=== PATIENT | female | born 1975 | race Caucasian/White ===

== ENCOUNTER → 2016-04-18 | Outpatient (CLI) | payer OTHER ==
--- NOTE | 2016-04-18 14:08 | REP ---
MR LUMBAR SPINE WITHOUT CONTRAST: HISTORY: Right leg pain. COMPARISON: 10/04/2015 Decreased signal intensity on T2-weighted images is present in the L3-4 through L5-S1 intervertebral discs. The L3-4 and L4-5 intervertebral discs are decreased in height. These findings are consistent with disc degeneration. There is no disc bulge or herniation at the L1-2 and L2-3 levels. The nerves exit the neural foramina without compression. A diffuse disc bulge is present at the L3-4 level. There is hypertrophy of the ligamenta flava and posterior articulating facets. These findings produce minimal central canal stenosis. The L3 nerves exit the neural foramina without compression. A diffuse disc bulge is present at the L4-5 level. There is minimal compression of the thecal sac. There is hypertrophy of the posterior articulating facets. A mild size left intraforaminal and lateral disc protrusion is present. There is compression of the left L4 nerve in the neural foramen. The right L4 nerve exits the neural foramen without compression. A diffuse disc bulge is present at the L5-S1 level. This abuts the thecal sac and S1 nerves. There is hypertrophy of the posterior articulating facets. A small right intraforaminal disc protrusion is present. This abuts the right L5 nerve in the distal neural foramen. The left L5 nerve exits the neural foramen without compression. The conus medullaris is normal in appearance terminating at the level of the T12-L1 intervertebral disc. Normal signal intensity is present in the lumbar vertebral bodies. IMPRESSION: 1. Minimal central canal stenosis at the L3-4 level secondary to disc bulge, ligamentous, and facet hypertrophy. This is a new finding. 2. Diffuse disc bulge at the L4-5 level with minimal thecal sac compression. A mild size left intraforaminal and lateral disc protrusion is present. There is compression of the left L4 nerve in the neural foramen. 3. Diffuse disc bulge at the L5-S1 level. This abuts the thecal sac and S1 nerves. A small right intraforaminal disc protrusion is present. This abuts the right L5 nerve in the distal neural foramen. There is no other significant change. Signed by Biju Salinas MD 04/18/2016 02:13 P
--- NOTE | 2016-04-18 15:39 | REP ---
MRI CERVICAL SPINE WITHOUT CONTRAST: HISTORY: Left arm numbness. COMPARISON: 05/26/2009 A disc bulge and small central disc protrusion are present at the C3-4 level. There is minimal spinal cord compression. Uncinate process hypertrophy is present on the left. This produces minimal narrowing of the left C3 neural foramen. The right C3 neural foramen is patent. A disc bulge is present at the C4-5 level. There is mild effacement of the thecal sac without spinal cord compression. Bilateral uncinate process hypertrophy is present. This produces mild narrowing of the C4 neural foramina. A disc bulge is present at the C6-7 level. There is mild effacement of the thecal sac without spinal cord compression. The C6 neural foramina are patent. There is no other disc bulge or herniation. The remaining neural foramina are patent. The spinal cord is normal in signal intensity. There is no intradural extramedullary lesion. The C4-5 through C6-7 intervertebral discs are decreased in height consistent with disc degeneration. Normal signal intensity is present in the cervical vertebral bodies. IMPRESSION: There is cervical spondylosis at the C3-4, C4-5 and C6-7 levels, most significant at the C3-4 level where there is minimal spinal cord compression. The spinal cord compression is a new finding. There is no other significant change. Signed by Biju Salinas MD 04/18/2016 03:40 P
== END ==
LOC: M RAD 12:27
PROVIDERS: ATTEND Physical Medicine & Rehabilitation
DX: R20.2 Paresthesia of skin (principal); M51.27 Other intervertebral disc displacement, lumbosacral region

== ENCOUNTER → 2016-06-19 | Outpatient (REF) | payer OTHER ==
[2016-06-19 11:38] LABS: INR 0.89
== END ==
LOC: M LABDRAW1 11:09
PROVIDERS: ATTEND Physical Medicine & Rehabilitation
DX: M47.892 Other spondylosis, cervical region (principal)

== ENCOUNTER → 2016-12-21 | Outpatient (CLI) | payer OTHER ==
--- NOTE | 2016-12-21 10:47 | REP ---
MRI LUMBAR SPINE WITHOUT CONTRAST: HISTORY: Back pain. COMPARISON: 04/18/2016. Decreased signal intensity on T2-weighted images is present in the L3-4 through L5-S1 intervertebral discs. The L3-4 and L4-5 intervertebral discs are decreased in height. These findings are consistent with disc degeneration. There is no disc bulge or herniation at the L1-2 and L2-3 levels. The nerves exit the neural foramina without compression. A diffuse disc bulge is present at the L3-4 level. There is hypertrophy of the ligamenta flava and posterior articulating facets. These findings produce minimal central canal stenosis. The L3 nerves exit the neural foramina without compression. A diffuse disc bulge is present at the L4-5 level. There is minimal compression of the thecal sac. A mild size left intraforaminal and lateral disc protrusion is present. There is compression of the left L4 nerve in the neural foramen. The right L4 nerve exits the neural foramen without compression. A diffuse disc bulge is present at the L5-S1 level. This abuts the thecal sac and S1 nerves. There is hypertrophy of the posterior articulating facets. A small right intraforaminal disc protrusion is present. This abuts the right L5 nerve in the distal neural foramen. The left L5 nerve exits the neural foramen without compression. The conus medullaris is normal in appearance terminating at the level of the T12-L1 intervertebral disc. Normal signal intensity is present in the lumbar vertebral bodies. IMPRESSION: 1. Minimal central canal stenosis at the L3-4 level secondary to disc bulge, ligamentous and facet hypertrophy. 2. Diffuse disc bulge at the L4-5 level with minimal thecal sac compression. A mild size left intraforaminal and lateral disc protrusion is present. There is compression of the left L4 nerve in the neural foramen. 3. Diffuse disc bulge at the L5-S1 level. This abuts the thecal sac and S1 nerves. A small right intraforaminal disc protrusion is present. This abuts the right L5 nerve in the distal neural foramen. There is no significant change compared to the previous study. Signed by Biju Salinas MD 12/21/2016 10:49 A
== END ==
LOC: M RAD 08:53
PROVIDERS: ATTEND Physical Medicine & Rehabilitation
DX: M48.06 Spinal stenosis, lumbar region (principal)
CPT/HCPCS: 72149; A9576

== ENCOUNTER → 2017-03-19 | Outpatient (CLI) | payer OTHER ==
[2017-03-24 00:06] LABS: ACETAMINOPHEN Negative ug/mL (10-30); ACETONE Negative % (0.000-0.010); AMITRIPTYLINE None Detected (Not Estab.); BUTALBITAL None Detected ug/mL (1-10); CHLORDIAZEPOXIDE None Detected ug/mL (0.1-0.9); DESIPRAMINE None Detected (Not Estab.); DIAZEPAM None Detected ug/mL (0.1-0.9); DOXEPIN None Detected (Not Estab.); ETHANOL Negative % (0.000-0.010); IMIPRAMINE None Detected (Not Estab.); ISOPROPANOL Negative % (0.000-0.010); METHANOL Negative % (0.000-0.010); NORCHLORDIAZEPOXIDE None Detected ug/mL (0.1-0.6); NORDIAZEPAM None Detected ug/mL (0.1-1.4); NORDOXEPIN None Detected (Not Estab.); NORTRIPTYLINE None Detected ng/mL (50-150); PENTOBARBITAL None Detected ug/mL (1-5); PHENOBARBITAL None Detected ug/mL (15-40); PHENYTOIN None Detected ug/mL (10.0-20.0); SALICYLATE None Detected ug/mL (30-250)
== END ==
LOC: M LAB 09:10
DX: M51.26 Other intervertebral disc displacement, lumbar region (principal)
CPT/HCPCS: 84600

== ENCOUNTER → 2017-08-19 | Outpatient (REF) | payer OTHER ==
[2017-08-25 11:03] LABS: SUMMARY SEE SEPARATE REPORT
== END ==
LOC: M LAB REF 10:37
DX: Z79.891 Long term (current) use of opiate analgesic (principal)

== ENCOUNTER → 2018-08-18 | Outpatient (CLI) | payer OTHER ==
[2018-08-18 10:05] LABS: BASO % 0.5 % (0.0-1.0); EOS # 0.1 10^3/uL (0.0-0.50); EOS % 1.5 % (0.0-3.0); HEMATOCRIT 40.8 % (36.0-47.0); HEMOGLOBIN 12.9 g/dl (12.0-15.5); LYMPH # 1.5 10^3/uL (1.5-4.5); LYMPH % 16.5 % (24.0-44.0); MEAN CORPUSCULAR HGB CONC 31.6 g/dl (32.0-36.5); MEAN CORPUSCULAR VOLUME 91.7 fl (80.0-96.0); MONO # 0.7 10^3/uL (0.0-0.8); MONO % 7.7 % (0.0-5.0); NEUTROPHILS # 6.4 10^3/uL (1.8-7.7); NEUTROPHILS % 72.6 % (36.0-66.0); PLATELET COUNT, AUTOMATED 267 10^3/uL (150-450); RED BLOOD COUNT 4.45 10^6/uL (4.00-5.40); WHITE BLOOD COUNT 8.9 10^3/uL (4.0-10.0)
[2018-08-18 10:33] LABS: HEMOGLOBIN A1c 5.8 %
[2018-08-18 10:49] LABS: ALBUMIN 3.5 GM/DL (3.2-5.2); ALT/SGPT 31 U/L (12-78); BILIRUBIN,TOTAL 0.4 MG/DL (0.2-1.0); BLOOD UREA NITROGEN 20 MG/DL (7-18); CALCIUM LEVEL 8.2 MG/DL (8.5-10.1); CARBON DIOXIDE LEVEL 27 MEQ/L (21-32); CHLORIDE LEVEL 108 MEQ/L (98-107); CHOLESTEROL LEVEL 162 MG/DL (<200); CHOLESTEROL RISK RATIO 2.892 (<5); CREATININE FOR GFR 0.72 MG/DL (0.55-1.30); FREE T4 0.94 NG/DL (0.76-1.46); GLOMERULAR FILTRATION RATE > 60.0 (>58); GLUCOSE, FASTING 95 MG/DL (70-100); HDL CHOLESTEROL 56 MG/DL (>40); LDL CHOLESTEROL 89 MG/DL (<100); NON-HDL-C 106 MG/DL; POTASSIUM SERUM 4.3 MEQ/L (3.5-5.1); SODIUM LEVEL 142 MEQ/L (136-145); TOTAL PROTEIN 6.7 GM/DL (6.4-8.2); TRIGLYCERIDES LEVEL 87 MG/DL (<150)
== END ==
LOC: M LAB 08:59
PROVIDERS: ATTEND Physician Assistant Medical
DX: Z13.220 Encounter for screening for lipoid disorders (principal); I10 Essential (primary) hypertension; R73.01 Impaired fasting glucose; E66.3 Overweight

== ENCOUNTER → 2018-09-01 | Outpatient (CLI) | payer OTHER ==
[2018-09-01 14:13] LABS: BLOOD UREA NITROGEN 20 MG/DL (7-18); CREATININE FOR GFR 0.73 MG/DL (0.55-1.30); GLOMERULAR FILTRATION RATE > 60.0 (>58)
== END ==
LOC: M LAB 13:21
PROVIDERS: ATTEND Physician Assistant
DX: M47.816 Spondylosis without myelopathy or radiculopathy, lumbar region (principal)

== ENCOUNTER → 2018-09-08 | Outpatient (CLI) | payer OTHER ==
--- NOTE | 2018-09-08 12:32 | REPMRS ---
Patient History The patient states she has not had a clinical breast exam in over a year. Baseline Mammogram No known family history of cancer. 3D TOMOSYNTHESIS WAS PERFORMED. [facility]%. Digital Woman Screen Mammo: September 08, 2018 - Exam #: [id number] Bilateral CC and MLO view(s) were taken. Technologist: Nneka Sanchez, Technologist FINDINGS: The breast tissue is heterogeneously dense. This may lower the sensitivity of mammography. There is no evidence of cancer on this mammogram. Assessment: BI-RADS/ACR category 2 mammogram. Benign Findings. Recommendation Routine screening mammogram of both breasts in 1 year (for women over age 40). This mammogram was interpreted with the aid of an FDA-approved computer-aided dectection system. Electronically Signed By: Jozef Ramos MD 09/08/18 [id number]
== END ==
LOC: M WHC 11:31
PROVIDERS: ATTEND Physician Assistant Medical
DX: Z12.31 Encounter for screening mammogram for malignant neoplasm of breast (principal)

== ENCOUNTER → 2018-10-06 | Outpatient (CLI) | payer OTHER ==
--- NOTE | 2018-10-06 19:28 | REP ---
THYROID ULTRASOUND: Real-time sonographic evaluation of the thyroid is performed. Both lobes are slightly prominent in size, right lobe measuring 5.0 x 1.6 x 1.5 cm and left lobe 5.0 x 1.7 x 1.4 cm. In the right upper pole there is an oval nodule measuring 1.7 x 0.8 x 1.3 cm. In the mid aspect there is a 5 mm solid nodule. In the right lower pole there is a hypoechoic nodule containing a calcification measuring 1.4 x 1.1 x 1.2 cm. On the left there is a heterogenous solid nodule in the mid aspect 2.8 x 1.3 x 1.5 cm. Another solid nodule more superiorly measures 1.7 x 0.7 x 1.5 cm. IMPRESSION: Bilateral solid nodules as above. Recommend ultrasound guided FNA of the largest nodule in each lobe. Electronically Signed by Jozef Ramos MD 10/08/2018 11:34 A
== END ==
LOC: M RAD 17:06
PROVIDERS: ATTEND Physician Assistant Medical
DX: E04.1 Nontoxic single thyroid nodule (principal)

== ENCOUNTER → 2018-10-19 | Outpatient (CLI) | payer OTHER ==
[~2018-10-19] MED LIST: GABA600T4 PO; IMIT100T PO; LIDO1PAD TOP; LIDOCAINE 1% MDV 20ML VIAL As Ordered ONE; LISI10TA4 PO; MELO15TA28 PO; PROP10TA56 PO; TRAM50TA2 PO
[2018-10-19 13:09] VITALS: BP 129/75
--- NOTE | 2018-10-20 08:46 | REP ---
ULTRASOUND-GUIDED BILATERAL THYROID BIOPSY The procedure was performed under the direct supervision of Dr. Jain. The images were reviewed with Dr. Jain. Patient has a history of bilateral solid nodules seen on a previous ultrasound dated 10/06/2018. The largest nodule on either side was recommended for biopsy. The risks and benefits of the procedure were explained to the patient and informed consent was obtained. The largest nodule on the right and left thyroid were localized using ultrasound guidance. The skin was prepped and draped in a sterile fashion. 1% lidocaine was used as a local anesthetic. The right thyroid nodule was addressed first. Using ultrasound guidance four fine-needle aspirations were obtained using 25 gauge needles. The left thyroid nodule was then addressed. Using ultrasound guidance four fine-needle aspirations were obtained using 25 gauge needles. The patient tolerated the procedure well and there were no immediate complications. After the appropriate amount of monitored convalescence the patient was discharged from the department. Reviewed by NABILA Miguel 10/19/2018 05:30 P Electronically Signed by Osmani Jain MD 10/20/2018 08:37 A
== END ==
LOC: M IRPRO 12:06
DX: E04.2 Nontoxic multinodular goiter (principal)

== ENCOUNTER → 2019-09-20 | Outpatient (CLI) | payer OTHER ==
[~2019-09-20] MED LIST changes: -LIDOCAINE 1% MDV 20ML VIAL As Ordered ONE
[2019-09-20 10:57] LABS: BASO # 0.1 10^3/uL (0.0-0.2); BASO % 0.8 % (0.0-1.0); EOS # 0.3 10^3/uL (0.0-0.5); EOS % 2.2 % (0.0-3.0); HEMATOCRIT 38.9 % (36.0-47.0); HEMOGLOBIN 12.1 g/dl (12.0-15.5); MEAN CORPUSCULAR HEMOGLOBIN 27.9 pg (27.0-33.0); MEAN CORPUSCULAR HGB CONC 31.1 g/dl (32.0-36.5); MEAN CORPUSCULAR VOLUME 89.6 fl (80.0-96.0); MONO # 0.9 10^3/uL (0.0-0.8); MONO % 7.3 % (0.0-5.0); NEUTROPHILS # 8.3 10^3/uL (1.5-8.5); NEUTROPHILS % 71.2 % (36.0-66.0); PLATELET COUNT, AUTOMATED 350 10^3/uL (150-450); RED BLOOD COUNT 4.34 10^6/uL (4.00-5.40); WHITE BLOOD COUNT 11.7 10^3/uL (4.0-10.0)
[2019-09-20 11:20] LABS: HEMOGLOBIN A1c 6.5 %
[2019-09-20 11:27] LABS: ALBUMIN 3.6 GM/DL (3.2-5.2); ALT/SGPT 27 U/L (12-78); BILIRUBIN,TOTAL 0.4 MG/DL (0.2-1.0); BLOOD UREA NITROGEN 18 MG/DL (7-18); CALCIUM LEVEL 8.7 MG/DL (8.5-10.1); CARBON DIOXIDE LEVEL 26 MEQ/L (21-32); CHLORIDE LEVEL 106 MEQ/L (98-107); CHOLESTEROL LEVEL 192 MG/DL (<200); CHOLESTEROL RISK RATIO 3.096 (<5); CREATININE FOR GFR 0.75 MG/DL (0.55-1.30); GLOMERULAR FILTRATION RATE > 60.0 (>58); GLUCOSE, FASTING 81 MG/DL (70-100); HDL CHOLESTEROL 62 MG/DL (>40); LDL CHOLESTEROL 94 MG/DL (<100); NON-HDL-C 130 MG/DL; POTASSIUM SERUM 4.3 MEQ/L (3.5-5.1); SODIUM LEVEL 139 MEQ/L (136-145); TOTAL PROTEIN 6.9 GM/DL (6.4-8.2); TRIGLYCERIDES LEVEL 182 MG/DL (<150)
== END ==
LOC: M LAB 09:31
PROVIDERS: ATTEND Physician Assistant Medical
DX: R73.01 Impaired fasting glucose (principal); I10 Essential (primary) hypertension

== ENCOUNTER → 2019-09-20 | Outpatient (CLI) | payer OTHER ==
[2019-09-20 10:55] LABS: PLATELET COUNT, AUTOMATED 349 10^3/uL (150-450)
[2019-09-20 11:07] LABS: INR 1.01
[2019-09-20 11:22] LABS: AMPHETAMINES URINE REFLEX NEGATIVE (NEGATIVE); BARBITURATES URINE REFLEX NEGATIVE (NEGATIVE); BENZODIAZEPINES URINE REFLEX NEGATIVE (NEGATIVE); CANNABINOIDS URINE REFLEX NEGATIVE (NEGATIVE); COCAINE METABOLITE URINE REFLE NEGATIVE (NEGATIVE); METHADONE URINE REFLEX NEGATIVE (NEGATIVE); OPIATES URINE REFLEX NEGATIVE (NEGATIVE); PHENCYCLIDINE URINE REFLEX NEGATIVE (NEGATIVE)
== END ==
LOC: M LAB 09:27
PROVIDERS: ATTEND Physical Medicine & Rehabilitation
DX: D69.1 Qualitative platelet defects (principal); Z79.01 Long term (current) use of anticoagulants

== ENCOUNTER → 2020-02-08 | Outpatient (REF) | payer OTHER ==
[2020-02-08 13:56] LABS: BASO # 0.1 10^3/uL (0.0-0.2); EOS # 0.3 10^3/uL (0.0-0.5); EOS % 3.8 % (0.0-3.0); HEMATOCRIT 40.3 % (36.0-47.0); HEMOGLOBIN 12.5 g/dl (12.0-15.5); LYMPH # 2.2 10^3/uL (1.5-5.0); LYMPH % 27.9 % (24.0-44.0); MEAN CORPUSCULAR HEMOGLOBIN 27.7 pg (27.0-33.0); MEAN CORPUSCULAR VOLUME 89.4 fl (80.0-96.0); MONO # 0.7 10^3/uL (0.0-0.8); MONO % 8.7 % (0.0-5.0); NEUTROPHILS # 4.6 10^3/uL (1.5-8.5); PLATELET COUNT, AUTOMATED 350 10^3/uL (150-450); RED BLOOD COUNT 4.51 10^6/uL (4.00-5.40); WHITE BLOOD COUNT 7.9 10^3/uL (4.0-10.0)
[2020-02-08 14:26] LABS: ALT/SGPT 27 U/L (12-78); BILIRUBIN,TOTAL 0.4 MG/DL (0.2-1.0); BLOOD UREA NITROGEN 21 MG/DL (7-18); CALCIUM LEVEL 9.2 MG/DL (8.5-10.1); CARBON DIOXIDE LEVEL 27 MEQ/L (21-32); CHLORIDE LEVEL 106 MEQ/L (98-107); CHOLESTEROL LEVEL 215 MG/DL (<200); CHOLESTEROL RISK RATIO 3.981 (<5); CREATININE FOR GFR 0.79 MG/DL (0.55-1.30); FREE T4 0.98 NG/DL (0.76-1.46); GLOMERULAR FILTRATION RATE > 60.0 (>58); GLUCOSE, FASTING 76 MG/DL (70-100); HDL CHOLESTEROL 54 MG/DL (>40); LDL CHOLESTEROL 135 MG/DL (<100); NON-HDL-C 161 MG/DL; POTASSIUM SERUM 4.6 MEQ/L (3.5-5.1); SODIUM LEVEL 138 MEQ/L (136-145); TRIGLYCERIDES LEVEL 128 MG/DL (<150)
[2020-02-08 14:42] LABS: HEMOGLOBIN A1c 5.9 %
== END ==
LOC: M SFHCPLAZ 11:32
PROVIDERS: ATTEND Physician Assistant Medical
DX: E04.9 Nontoxic goiter, unspecified (principal); I10 Essential (primary) hypertension; Z13.220 Encounter for screening for lipoid disorders; R73.01 Impaired fasting glucose

== ENCOUNTER → 2020-06-26 | Outpatient (REF) | payer OTHER ==
[~2020-06-26] MED LIST changes: +LISI10TA22 PO; -LISI10TA4 PO
[2020-06-26 14:26] LABS: BASO # 0.1 10^3/uL (0.0-0.2); BASO % 0.8 % (0.0-1.0); EOS # 0.3 10^3/uL (0.0-0.5); EOS % 3.5 % (0.0-3.0); HEMATOCRIT 43.7 % (36.0-47.0); HEMOGLOBIN 13.5 g/dl (12.0-15.5); LYMPH # 2.3 10^3/uL (1.5-5.0); LYMPH % 23.3 % (24.0-44.0); MEAN CORPUSCULAR HEMOGLOBIN 28.5 pg (27.0-33.0); MEAN CORPUSCULAR HGB CONC 30.9 g/dl (32.0-36.5); MEAN CORPUSCULAR VOLUME 92.2 fl (80.0-96.0); MONO # 0.7 10^3/uL (0.0-0.8); MONO % 7.6 % (2.0-8.0); NEUTROPHILS # 6.2 10^3/uL (1.5-8.5); NEUTROPHILS % 63.6 % (36.0-66.0); PLATELET COUNT, AUTOMATED 366 10^3/uL (150-450); RED BLOOD COUNT 4.74 10^6/uL (4.00-5.40); WHITE BLOOD COUNT 9.8 10^3/uL (4.0-10.0)
[2020-06-26 14:42] LABS: HEMOGLOBIN A1c 5.8 %
[2020-06-26 15:05] LABS: ALBUMIN 4.3 GM/DL (3.2-5.2); ALT/SGPT 34 U/L (12-78); BILIRUBIN,TOTAL 0.1 MG/DL (0.2-1.0); BLOOD UREA NITROGEN 19 MG/DL (7-18); CALCIUM LEVEL 9.6 MG/DL (8.5-10.1); CARBON DIOXIDE LEVEL 26 MEQ/L (21-32); CHLORIDE LEVEL 106 MEQ/L (98-107); CREATININE FOR GFR 0.82 MG/DL (0.55-1.30); GLOMERULAR FILTRATION RATE > 60.0 (>58); GLUCOSE, FASTING 92 MG/DL (70-100); SODIUM LEVEL 138 MEQ/L (136-145); TOTAL PROTEIN 7.2 GM/DL (6.4-8.2)
[2020-06-26 15:06] LABS: FREE T4 1.03 NG/DL (0.76-1.46)
== END ==
LOC: M SFHCPLAZ 10:21
PROVIDERS: ATTEND Physician Assistant Medical
DX: I10 Essential (primary) hypertension (principal); R73.01 Impaired fasting glucose; E04.9 Nontoxic goiter, unspecified

== ENCOUNTER → 2020-09-05 | Outpatient (CLI) | payer OTHER ==
--- NOTE | 2020-09-05 10:12 | REPMRS ---
Patient History The patient states she has not had a clinical breast exam in over a year. No known family history of cancer. Tomosynthesis is performed. [place] breast density is b. [facility] lifetime risk of breast cancer 10.5%. Patient states no breast complaints today. Patient has signed MRS History Sheet. Digital Woman Screen Mammo: September 05, 2020 - Exam #: [id number] Bilateral CC and MLO view(s) were taken. Technologist: Nneka Sanchez, Technologist Prior study comparison: September 08, 2018, bilateral digital woman screen mammo performed at [facility]. FINDINGS: The breast tissue is heterogeneously dense. This may lower the sensitivity of mammography. There has been no change in the appearance of the mammogram from the prior studies. There is a moderate amount of residual fibroglandular tissue which is fairly symmetric. There is no interval development of dominant mass, areas of architectural distortion, or clustered microcalcification typical of malignancy. Assessment: BI-RADS/ACR category 1 mammogram. Negative Mammogram. Recommendation Routine screening mammogram in 1 year (for women over age 40). This mammogram was interpreted with the aid of an FDA-approved computer-aided dectection system. Electronically Signed By: Jozef Ramos MD 09/05/20 [id number]
== END ==
LOC: M WHC 09:24
PROVIDERS: ATTEND Physician Assistant Medical
DX: Z12.31 Encounter for screening mammogram for malignant neoplasm of breast (principal)

== ENCOUNTER → 2020-09-27 | Outpatient (CLI) | payer OTHER ==
--- NOTE | 2020-09-27 12:31 | REP ---
INDICATION: SPONDYLOSIS, R/O STENOSIS. COMPARISON: Comparison study May 06, 2019.. TECHNIQUE: Sagittal and axial T1 and T2-weighted scans are acquired in the usual fashion with and without fat saturation. Sequences include spin echo, turbo spin-echo, and STIR imaging sequences. FINDINGS: Lumbar vertebral body heights are preserved. Alignment is normal. There is no evidence of spondylolysis or spondylolisthesis. No extra vertebral abnormality is observed. Normal caliber aorta. The tip of the conus medullaris is normal in position and appearance at T11-12. Axial and sagittal images taken at the L1-2 disc level are unremarkable. At L2-L3, there is minimal diffuse disc bulging. No spinal stenosis or foraminal narrowing is seen. At the L3-4 disc level, there is degenerative disc narrowing and some decreased signal intensity. There is a right lateral broad-based disc protrusion contacting the adjacent extradural root sleeve. This appears to be unchanged. There is ligamentum flavum and facet hypertrophy at L3-4. L3-4 central canal size is borderline. Ligamentum flavum and facet hypertrophy changes are stable as well. At L4-L5, there is degenerative disc narrowing and desiccation. There is a large left lateral focal disc protrusion at L4-5 which contributes to neural foraminal narrowing. This contacts the exiting 5th lumbar root as well in the lateral recess. This appears to be unchanged from the 2020 study. There is ligamentum flavum and moderate facet hypertrophy bilaterally at L4-5 again noted. Canal size is borderline. At L5-S1, there is mild to moderate facet hypertrophy left greater than right unchanged from the comparison study. IMPRESSION: There is a left lateral disc protrusion at L4-5 and a right lateral disc protrusion at L3-4 which appear to be unchanged. Moderate L3-4 and L4-5 facet and ligamentum flavum hypertrophy also stable from the prior study. <Electronically signed by Tuan Jain > 09/27/20 [id number]
== END ==
LOC: M PLAIMG 11:03
PROVIDERS: ATTEND Physician Assistant Surgical
DX: M47.816 Spondylosis without myelopathy or radiculopathy, lumbar region (principal)

== ENCOUNTER → 2020-12-04 | Outpatient (CLI) | payer OTHER | LOC: M LAB 09:37 | PROVIDERS: ATTEND Physical Medicine & Rehabilitation | DX: M47.816 Spondylosis without myelopathy or radiculopathy, lumbar region (principal) ==

== ENCOUNTER → 2021-06-11 | Outpatient (CLI) | payer OTHER | LOC: M WHC 13:03 | PROVIDERS: ATTEND Physician Assistant Medical | DX: R92.2 Inconclusive mammogram (principal) | CPT/HCPCS: 76642; 77065; G0279 ==

== ENCOUNTER → 2021-06-21 | Outpatient (CLI) | payer OTHER ==
[~2021-06-21] MED LIST changes: +**SFHN** LIDOCAINE 1% MDV 20ML VIAL ONE; +**SFHN** SODIUM BICARBONATE 8.4% 50MEQ 50ML VIAL ONE; +NAPR-849 PO; +OMEP10CASR PO
[2021-06-21 13:03] VITALS: BP 142/84
== END ==
LOC: M WHCPRO 11:15
PROVIDERS: ATTEND Physician Assistant Medical
DX: N60.21 Fibroadenosis of right breast (principal); D24.1 Benign neoplasm of right breast
CPT/HCPCS: 19083; 19084; 77065; 88305; G0279

== ENCOUNTER → 2021-11-27 | Outpatient (CLI) | payer OTHER ==
[~2021-11-27] MED LIST changes: -**SFHN** LIDOCAINE 1% MDV 20ML VIAL ONE; -**SFHN** SODIUM BICARBONATE 8.4% 50MEQ 50ML VIAL ONE
[2021-11-27 15:46] LABS: BASO # 0.1 10^3/uL (0.0-0.2); BASO % 0.9 % (0.0-1.0); EOS # 0.4 10^3/uL (0.0-0.5); HEMATOCRIT 34.5 % (36.0-47.0); HEMOGLOBIN 10.3 g/dl (12.0-15.5); LYMPH # 2.6 10^3/uL (1.5-5.0); LYMPH % 28.2 % (24.0-44.0); MEAN CORPUSCULAR HEMOGLOBIN 24.2 pg (27.0-33.0); MEAN CORPUSCULAR HGB CONC 29.9 g/dl (32.0-36.5); MONO # 0.8 10^3/uL (0.0-0.8); MONO % 8.2 % (2.0-8.0); NEUTROPHILS # 5.3 10^3/uL (1.5-8.5); NEUTROPHILS % 57.7 % (36.0-66.0); PLATELET COUNT, AUTOMATED 416 10^3/uL (150-450); RED BLOOD COUNT 4.26 10^6/uL (4.00-5.40); WHITE BLOOD COUNT 9.2 10^3/uL (4.0-10.0)
[2021-11-27 16:12] LABS: ALBUMIN 3.6 GM/DL (3.2-5.2); ALT/SGPT 27 U/L (12-78); BILIRUBIN,TOTAL 0.2 MG/DL (0.2-1.0); BLOOD UREA NITROGEN 22 MG/DL (7-18); CALCIUM LEVEL 8.9 MG/DL (8.5-10.1); CARBON DIOXIDE LEVEL 30 MEQ/L (21-32); CHLORIDE LEVEL 105 MEQ/L (98-107); CHOLESTEROL LEVEL 176 MG/DL (<200); FREE T4 0.99 NG/DL (0.76-1.46); GLOMERULAR FILTRATION RATE > 60.0 (>58); GLUCOSE, FASTING 85 MG/DL (70-100); HDL CHOLESTEROL 50 MG/DL (>40); LDL CHOLESTEROL 95 MG/DL (<100); NON-HDL-C 126 MG/DL; POTASSIUM SERUM 4.3 MEQ/L (3.5-5.1); SODIUM LEVEL 138 MEQ/L (136-145); THYROID STIMULATING HORMONE 0.792 uIU/ML (0.358-3.740); TOTAL PROTEIN 6.4 GM/DL (6.4-8.2); TRIGLYCERIDES LEVEL 153 MG/DL (<150)
[2021-11-27 16:53] LABS: MALB URINE SIEMENS 15.8 MG/L; MAU/CREAT RATIO 10.5 MCG/MG (0.0-30.0)
[2021-11-27 17:01] LABS: HEMOGLOBIN A1c 6.2 %
== END ==
LOC: M PLALAB 12:46
PROVIDERS: ATTEND Physician Assistant Medical
DX: R73.01 Impaired fasting glucose (principal); I10 Essential (primary) hypertension; E66.3 Overweight; Z13.220 Encounter for screening for lipoid disorders

== ENCOUNTER → 2022-02-07 | Outpatient (REF) | payer OTHER | LOC: M SFHCPLAZ 13:02 | PROVIDERS: ATTEND Physician Assistant Medical | DX: R35.0 Frequency of micturition (principal) ==

== ENCOUNTER → 2022-04-22 | Outpatient (CLI) | payer OTHER | LOC: M PLAIMG 14:36 | PROVIDERS: ATTEND Physician Assistant | DX: M25.551 Pain in right hip (principal) ==

== ENCOUNTER → 2023-01-03 | Outpatient (CLI) | payer OTHER ==
[2023-01-03 13:00] LABS: BASO # 0.1 10^3/uL (0.0-0.2); BASO % 0.9 % (0.0-1.0); EOS # 0.3 10^3/uL (0.0-0.5); EOS % 3.5 % (0.0-3.0); HEMATOCRIT 37.6 % (36.0-47.0); HEMOGLOBIN 11.6 g/dl (12.0-15.5); LYMPH # 2.2 10^3/uL (1.5-5.0); LYMPH % 22.2 % (24.0-44.0); MEAN CORPUSCULAR HEMOGLOBIN 25.5 pg (27.0-33.0); MEAN CORPUSCULAR HGB CONC 30.9 g/dl (32.0-36.5); MEAN CORPUSCULAR VOLUME 82.6 fl (80.0-96.0); MONO % 10.1 % (2.0-8.0); NEUTROPHILS # 6.1 10^3/uL (1.5-8.5); NEUTROPHILS % 62.2 % (36.0-66.0); PLATELET COUNT, AUTOMATED 341 10^3/uL (150-450); RED BLOOD COUNT 4.55 10^6/uL (4.00-5.40); WHITE BLOOD COUNT 9.8 10^3/uL (4.0-10.0)
[2023-01-03 13:20] LABS: HEMOGLOBIN A1c 6.1 % (4.0-6.0)
[2023-01-03 13:30] LABS: ALBUMIN 3.7 G/DL (3.2-5.2); ALKALINE PHOSPHATASE 76 U/L (46-116); ALT/SGPT 24 U/L (7.0-40); AST/SGOT 12 U/L (<34); BILIRUBIN,TOTAL 0.2 MG/DL (0.3-1.2); BLOOD UREA NITROGEN 23 MG/DL (9-23); CALCIUM LEVEL 8.9 MG/DL (8.5-10.1); CARBON DIOXIDE LEVEL 27 MMOL/L (20-31); CHLORIDE LEVEL 105 MMOL/L (98-107); CHOLESTEROL LEVEL 163 MG/DL (<200); CHOLESTEROL RISK RATIO 3.06 (<5); CREATININE FOR GFR 0.57 MG/DL (0.55-1.30); FREE T4 1.03 NG/DL (0.89-1.76); GLOMERULAR FILTRATION RATE > 60.0 (>58); GLUCOSE, FASTING 145 MG/DL (60-100); HDL CHOLESTEROL 53.1 MG/DL (>40); LDL CHOLESTEROL 75.9 MG/DL (<100); NON-HDL-C 109.9 MG/DL; POTASSIUM SERUM 3.9 MMOL/L (3.5-5.1); SODIUM LEVEL 141 MMOL/L (136-145); THYROID STIMULATING HORMONE 1.923 uIU/ML (0.55-4.78); TOTAL PROTEIN 6.5 G/DL (5.7-8.2); TRIGLYCERIDES LEVEL 170 MG/DL (<150)
== END ==
LOC: M PLALAB 09:04
PROVIDERS: ATTEND Physician Assistant Medical
DX: I10 Essential (primary) hypertension (principal)

== ENCOUNTER → 2023-04-02 | Outpatient (CLI) | payer OTHER | LOC: M CARPUL 09:23 | PROVIDERS: ATTEND Physician Assistant Medical | DX: R05.3 Chronic cough (principal) ==

== ENCOUNTER → 2023-04-30 | Outpatient (CLI) | payer OTHER ==
[~2023-04-30] MED LIST changes: +METHACHOLINE KIT INH ONE
== END ==
LOC: M CARPUL 10:13
PROVIDERS: ATTEND Physician Assistant Medical
DX: R05.3 Chronic cough (principal)
CPT/HCPCS: 94070; 95070; J7674

== ENCOUNTER → 2023-06-10 | Outpatient (CLI) | payer OTHER ==
[~2023-06-10] MED LIST changes: -METHACHOLINE KIT INH ONE
== END ==
LOC: M RAD 06:25
PROVIDERS: ATTEND Physician Assistant Medical
DX: R22.2 Localized swelling, mass and lump, trunk (principal)

== ENCOUNTER → 2023-07-03 | Outpatient (CLI) | payer OTHER | LOC: M PLAIMG 13:16 | PROVIDERS: ATTEND Physician Assistant Medical | DX: R22.2 Localized swelling, mass and lump, trunk (principal) ==

== ENCOUNTER → 2023-08-07 | Outpatient (REF) | payer OTHER | LOC: M SFHCPLAZ 13:04 | PROVIDERS: ATTEND Physician Assistant Medical | DX: D17.9 Benign lipomatous neoplasm, unspecified (principal) ==

== ENCOUNTER → 2023-08-28 | Outpatient (CLI) | payer OTHER ==
[~2023-08-28] MED LIST changes: +ISOVUE-300 61% 100ML VIAL As Ordered ONE; +LIDOCAINE 1% MDV 20ML VIAL As Ordered ONE; +TRIAMCINOLONE ACETONIDE SUSP 40MG/ML 1ML VIAL As Ordered ONE
== END ==
LOC: M RAD 08:41
PROVIDERS: ATTEND Physician Assistant
DX: M16.11 Unilateral primary osteoarthritis, right hip (principal)
CPT/HCPCS: 20610; 77002; J3301; Q9967

== ENCOUNTER → 2023-11-11 | Outpatient (CLI) | payer OTHER ==
[~2023-11-11] MED LIST changes: -ISOVUE-300 61% 100ML VIAL As Ordered ONE; -LIDOCAINE 1% MDV 20ML VIAL As Ordered ONE; -TRIAMCINOLONE ACETONIDE SUSP 40MG/ML 1ML VIAL As Ordered ONE
[2023-11-11 13:38] LABS: BASO # 0.1 10^3/uL (0.0-0.2); BASO % 0.9 % (0.0-1.0); EOS # 0.3 10^3/uL (0.0-0.5); EOS % 2.5 % (0.0-3.0); HEMATOCRIT 36.6 % (36.0-47.0); HEMOGLOBIN 11.5 g/dl (12.0-15.5); LYMPH # 2.8 10^3/uL (1.5-5.0); LYMPH % 24.4 % (24.0-44.0); MEAN CORPUSCULAR HEMOGLOBIN 26.4 pg (27.0-33.0); MEAN CORPUSCULAR HGB CONC 31.4 g/dl (32.0-36.5); MEAN CORPUSCULAR VOLUME 84.1 fl (80.0-96.0); MONO # 0.9 10^3/uL (0.0-0.8); MONO % 7.3 % (2.0-8.0); NEUTROPHILS # 7.4 10^3/uL (1.5-8.5); PLATELET COUNT, AUTOMATED 443 10^3/uL (150-450); RED BLOOD COUNT 4.35 10^6/uL (4.00-5.40); WHITE BLOOD COUNT 11.6 10^3/uL (4.0-10.0)
[2023-11-11 14:15] LABS: ALBUMIN 3.5 G/DL (3.2-5.2); ALKALINE PHOSPHATASE 82 U/L (46-116); ALT/SGPT 20 U/L (7.0-40); AST/SGOT 9 U/L (<34); BILIRUBIN,TOTAL 0.3 MG/DL (0.3-1.2); BLOOD UREA NITROGEN 19 MG/DL (9-23); CALCIUM LEVEL 8.8 MG/DL (8.5-10.1); CARBON DIOXIDE LEVEL 29 MMOL/L (20-31); CHLORIDE LEVEL 105 MMOL/L (98-107); CREATININE FOR GFR 0.64 MG/DL (0.55-1.30); GLOMERULAR FILTRATION RATE > 60.0 (>51); GLUCOSE, FASTING 113 MG/DL (60-100); POTASSIUM SERUM 3.9 MMOL/L (3.5-5.1); SODIUM LEVEL 141 MMOL/L (136-145); TOTAL PROTEIN 6.6 G/DL (5.7-8.2)
[2023-11-11 14:34] LABS: HEMOGLOBIN A1c 5.8 % (4.0-6.0)
== END ==
LOC: M PLALAB 09:35
PROVIDERS: ATTEND Physician Assistant Medical
DX: I10 Essential (primary) hypertension (principal); E66.3 Overweight

== ENCOUNTER → 2024-10-12 | Outpatient (CLI) | payer OTHER ==
[~2024-10-12] MED LIST changes: +AMLO1TAB24 PO; +AZEL1SPR3 NARES; +CARV3.12 PO; +FLUT10.6 INH; +GABA-1172 PO; +GABA-1490 PO; +GABA-1635 PO; -GABA600T4 PO; +ISOVUE-300 61% 100 ML VIAL As Ordered ONE; +LIDOCAINE 1% MDV 20 ML VIAL As Ordered ONE; +LISI40TA10 PO; +LORA-1041 PO; +PARO40TA2 PO; +TRIAMCINOLONE ACETONIDE SUSP 40MG/ML 1ML VIAL As Ordered ONE; +VENTAER INH
== END ==
LOC: M RAD 14:41
PROVIDERS: ATTEND Physician Assistant
DX: M16.11 Unilateral primary osteoarthritis, right hip (principal); M25.571 Pain in right ankle and joints of right foot
CPT/HCPCS: 20610; 77002; J3301; Q9967

== ENCOUNTER → 2025-01-17 | Outpatient (CLI) | payer OTHER ==
[~2025-01-17] MED LIST changes: -ISOVUE-300 61% 100 ML VIAL As Ordered ONE; -LIDOCAINE 1% MDV 20 ML VIAL As Ordered ONE; -TRIAMCINOLONE ACETONIDE SUSP 40MG/ML 1ML VIAL As Ordered ONE
[2025-01-17 13:31] LABS: BASO # 0.1 10^3/uL (0.0-0.2); BASO % 0.7 % (0.0-1.0); EOS # 0.3 10^3/uL (0.0-0.5); EOS % 3.0 % (0.0-3.0); LYMPH # 1.6 10^3/uL (1.5-5.0); LYMPH % 15.8 % (24.0-44.0); MONO # 0.7 10^3/uL (0.0-0.8); MONO % 6.8 % (2.0-8.0); NEUTROPHILS # 7.3 10^3/uL (1.5-8.5); NEUTROPHILS % 72.1 % (36.0-66.0); PLATELET COUNT, AUTOMATED 346 10^3/uL (150-450)
[2025-01-17 13:35] LABS: C REACTIVE PROTEIN QUANTITATIV 1.2 MG/DL (<1.0)
[2025-01-17 13:39] LABS: LUTEINIZING HORMONE 24.6 mIU/ML
[2025-01-17 13:40] LABS: FREE T4 1.2 NG/DL (0.89-1.76)
== END ==
LOC: M PLALAB 10:03
PROVIDERS: ATTEND Physician Assistant Medical
DX: N95.1 Menopausal and female climacteric states (principal); R59.1 Generalized enlarged lymph nodes

== ENCOUNTER → 2025-03-22 | Outpatient (REF) | payer OTHER | LOC: M SFHCPLAZ 08:32 | PROVIDERS: ATTEND Family Medicine | DX: Z53.9 Procedure and treatment not carried out, unspecified reason (principal); R05.1 Acute cough ==